=== PATIENT | male | born 1995 | race Caucasian/White ===

== ENCOUNTER 2022-04-06 18:46 | Inpatient (IN) | payer SELFPAY ==
[~2022-04-06] VITALS: Ht 167.6 cm; Wt 47.2 kg
[2022-04-06] MEDS ORDERED: SODIUM CHLORIDE 0.9% 1,000 ML IV ONE (19:45)
[2022-04-06 20:27] LABS: CHLORIDE 111 mEq/L (98-107)
[2022-04-06 20:28] LABS: HEMATOCRIT. 43.7 % (42.0-52.0); HEMOGLOBIN. 14.7 g/dL (14.0-18.0); MEAN CORPUSCULAR HEMOGLOBIN 31.1 pg (28.0-32.0); MEAN CORPUSCULAR VOLUME 92.3 fL (80.0-94.0); MEAN PLATELET VOLUME 8.9 fl (7.4-10.4); PLATELET 239 x1000/uL (130-400); RED BLOOD CELL COUNT 4.73 mill/uL (4.7-6.1); RED CELL DISTRIBUTION WIDTH 13.7 % (11.6-14.6)
[2022-04-06 20:35] LABS: ETHANOL BLOOD < 10 mg/dL
[2022-04-06 21:57] LABS: PLATELET ESTIMATE NORMAL
[2022-04-06] MEDS ORDERED: VANCOMYCIN 1G PREMIX 200 ML IV ONE (22:45)
[2022-04-06] MEDS ORDERED: CEFTRIAXONE 1 G PREMIX 50 ML IV ONE (22:45)
[2022-04-06 23:11] LABS: PARTIAL THROMBOPLASTIN TIME 25.1 sec (23.4-31.0); PROTHROMBIN TIME 11.2 sec (9.6-11.0)
[2022-04-06] MEDS ORDERED: ACYCLOVIR IV SCH (23:45)
[2022-04-06] MEDS ORDERED: WATER IV SCH (23:45)
[2022-04-06] MEDS ORDERED: DEXT 5% IV SCH (23:45)
[2022-04-07] MEDS ORDERED: CEFTRIAXONE 1 G PREMIX 50 ML IV NR (00:30)
[2022-04-07] MEDS ORDERED: VANCOMYCIN 1G PREMIX 200 ML IV NR (00:30)
[2022-04-07] MEDS ORDERED: DEXT 5% IV NR (01:00)
[2022-04-07] MEDS ORDERED: WATER IV NR (01:00)
[2022-04-07] MEDS ORDERED: ACYCLOVIR IV NR (01:00)
[2022-04-07 08:00] VITALS: BP 112/70
[2022-04-07 09:00] VITALS: BP 112/70
[2022-04-07] MEDS ORDERED: ONDANSETRON HCL 4MG/2ML INJ IV PRN (09:15)
[2022-04-07] MEDS ORDERED: ACETAMINOPHEN 325MG TABLET PO PRN (09:15)
[2022-04-07 11:40] LABS: BASOPHILS % 0.3 % (0.0-2.0); EOSINOPHILS % 6.7 % (0.0-5.0); HEMATOCRIT. 38.2 % (42.0-52.0); HEMOGLOBIN. 12.8 g/dL (14.0-18.0); LYMPHOCYTES % 19.3 % (20.0-50.0); MEAN CORPUSCULAR VOLUME 92.1 fL (80.0-94.0); MEAN PLATELET VOLUME 9.1 fl (7.4-10.4); MONOCYTES % 5.2 % (2.0-8.0); NEUTROPHILS % 68.5 % (40.0-76.0); PLATELET 221 x1000/uL (130-400); RED BLOOD CELL COUNT 4.14 mill/uL (4.7-6.1); RED CELL DISTRIBUTION WIDTH 13.8 % (11.6-14.6)
[2022-04-07 12:00] VITALS: BP 118/66
[2022-04-07 12:06] LABS: CHLORIDE 106 mEq/L (98-107)
[2022-04-07] MEDS ORDERED: LACTULOSE 20G/30ML UDC PO NR (14:37)
[2022-04-07 16:00] VITALS: BP 112/56
[2022-04-07 20:00] VITALS: BP 96/67
[2022-04-07] MEDS: DEXT 5%/0.45% NACL 1000ML 1,000 ML IV SCH (20:30)
[2022-04-08] VITALS: BP 100/51
[2022-04-08 04:00] VITALS: BP 103/63
[2022-04-08 08:00] VITALS: BP 110/66
[2022-04-08 12:00] VITALS: BP 105/64
[2022-04-08] MEDS ORDERED: POTASSIUM CHLORIDE 20MEQ TABLET SR PO NR (12:00)
[2022-04-08 16:00] VITALS: BP 108/63
[2022-04-08] MEDS: CHLORDIAZEPOXIDE 25MG CAPSULE PO SCH ×2 (18:54→22:58)
[2022-04-08 20:00] VITALS: BP 111/67
[2022-04-09] VITALS: BP 100/50
[2022-04-09 04:00] VITALS: BP 111/70
[2022-04-09] MEDS: DEXT 5%/0.45% NACL 1000ML 1,000 ML IV SCH (05:23)
[2022-04-09] MEDS: CHLORDIAZEPOXIDE 25MG CAPSULE PO SCH (05:41)
[2022-04-09] MEDS ORDERED: LORAZEPAM 0.5MG TABLET PO PRN (08:30)
== END 2022-04-09 08:26 | disposition left against medical advice (07) | DRG 52 ==
LOC: EDBD 18:46 → ER 18:46 → 6WST 23:52 → ENRESERV 04-07 06:48
PROVIDERS: ADMIT Internal Medicine; ATTEND Internal Medicine
DX: G92.9 Unspecified toxic encephalopathy (principal); D72.825 Bandemia; S00.83XA Contusion of other part of head, initial encounter; X58.XXXA Exposure to other specified factors, initial encounter; Y93.89 Activity, other specified; Y92.89 Other specified places as the place of occurrence of the external cause; Y99.8 Other external cause status
CPT/HCPCS: 36415; 71045; 80048; 80053; 80307; 80320; 80329; 82140; 83605; 84145; 85025; 99291; J0133; J0696; J3370; J7030; J7060; G0480